=== PATIENT | female | born 1950 | race Caucasian/White ===

== ENCOUNTER → 2021-02-11 | Outpatient (CLI) | payer BC ==
[~2021-02-11] MED LIST: ASPI-630 PO; ATOR20TA58 PO; CALC-31 PO; IBUP200T58 PO; LISI1TAB20 PO; LISI20TA18 PO; OMEG-152 PO; PANT20TA2 PO
[2021-02-11 09:10] LABS: ALBUMIN 3.8 g/dL (3.4-5.0); CALCIUM 9.2 mg/dL (8.5-10.1); CREATININE 0.8 mg/dL (0.6-1.0); GFR 71.3; POTASSIUM 3.7 mmol/L (3.5-5.1)
[2021-02-11 09:34] LABS: BASO % 1 % (0-3); EOS # 0.1 x10^3/uL (0.0-0.7); EOS % 1 % (0-3); HEMATOCRIT 39.2 % (36.0-47.0); HEMOGLOBIN 13.2 g/dL (12.0-15.5); LYMPH # 1.7 x10^3/uL (1.0-4.8); LYMPH % 36 % (24-48); MEAN CORPUSCULAR HEMOGLOBIN 31 pg (25-35); MEAN CORPUSCULAR HGB CONC 34 g/dL (31-37); MEAN CORPUSCULAR VOLUME 92 fL (79-100); MONO # 0.4 x10^3/uL (0.0-1.1); MONO % 8 % (0-9); NEUT # 2.6 x10^3/uL (1.8-7.7); NEUT % 54 % (31-73); PLATELET COUNT 245 x10^3/uL (140-400); RED BLOOD COUNT 4.27 x10^6/uL (3.50-5.40); RED CELL DISTRIBUTION WIDTH 12.7 % (11.5-14.5); WHITE BLOOD COUNT 4.8 x10^3/uL (4.0-11.0)
[2021-02-11 09:48] LABS: PROTHROMBIN TIME PATIENT 12.2 SEC (11.7-14.0)
--- NOTE | 2021-02-11 16:57 | RAD ---
EXAM: PA and Lateral Views of the Chest DATE: 02/11/2021 11:46 AM INDICATION: Reason: PRE SURG EVAL / Spl. Instructions: JOINT CLASS 02/11 / History: COMPARISON: No Prior FINDINGS: The heart is not enlarged. Mediastinal and hilar contours are normal. No focal parenchymal airspace opacity. No pleural effusion or pneumothorax. Old/healed clavicle fractures bilaterally. IMPRESSION: 1. No radiographic evidence for acute cardiopulmonary process. Electronically signed by: Momo Hill MD (02/11/2021 4:54 PM) [id number]
[2021-02-12 00:10] LABS: HEMOGLOBIN A1C 6.3 % (4.8-5.6)
== END ==
LOC: SURGPAT 11:49
PROVIDERS: ATTEND Orthopaedic Surgery
DX: Z01.818 Encounter for other preprocedural examination (principal); M16.11 Unilateral primary osteoarthritis, right hip
CPT/HCPCS: 36415; 71046; 80048; 82040; 82306; 83036; 85025; 85610; 85651; 85730; 87641

== ENCOUNTER 2021-02-26 08:31 | Observation (INO) | payer BC, MEDICARE ==
[2021-02-13 16:49] VITALS: BP 123/75
[~2021-02-26] VITALS: Ht 165.1 cm; Wt 83.1 kg
[2021-02-26] VITALS (7 sets, daily range): BP systolic 91–128; BP diastolic 57–80
[~2021-02-26 08:31] MED LIST changes: +ACETAMINOPHEN 500 MG TABLET PO PRN; +CLINDAMYCIN 900MG PREMIX 50 ML IV PRN; +GABAPENTIN 300 MG CAPSULE. PO PRN; +HYDROmorphone 2 MG/ML VIAL IVP PRN; +IV RINGERS,LACTATED 1000ML 1,000 ML IV SCH; +MELOXICAM 7.5 MG TABLET PO PRN; +MORPHINE SULFATE 2 MG/ML INJ. IVP PRN; +MORPHINE SULFATE 5 MG, KETOROLAC 30MG VIAL 30 MG, ROPIVacaine 0.5% PF 60 ML, EPINEPHrin... INT ART ONE; +PROCHLORPERAZINE 10 MG/2 ML VIAL. IVP PRN; +TRANEXAMIC ACID 1,000 MG in IV NS 50ML -- 1ST BAG INJ ONE; +TRANEXAMIC ACID 1,000 MG in IV NS 50ML -- 2ND BAG INJ ONE; +fentaNYL PF VIAL 100 MCG/2 ML VIAL IVP PRN
[2021-02-26] MEDS ORDERED: WARF-31 PO (08:58)
[2021-02-26] MEDS ORDERED: MELO15TA23 PO (08:58)
[2021-02-26 09:19] LABS: PROTHROMBIN TIME PATIENT 12.2 SEC (11.7-14.0)
--- NOTE | 2021-02-26 10:10 | HP ---
ADMIT DATE: 02/26/2021 CHIEF COMPLAINT: Right hip pain. HISTORY OF PRESENT ILLNESS: The patient has a several year history of right hip pain, sharp with activity, aching afterward, increasing in severity and severely affecting her activities of daily living. She was seen elsewhere and told that she really needed a hip arthroplasty and that they did not expect good results with an injection. After a thorough discussion of the alternatives, she does wish to proceed with surgical evaluation and treatment. Notes no recent medical issues. PAST MEDICAL HISTORY: Significant for hyperlipidemia, hypertension. PAST SURGICAL HISTORY: For appendectomy, tonsillectomy, tubal ligation, breast implants. FAMILY HISTORY: Mother of lung cancer. Also, lung cancer in her father. Several brothers and daughters are alive and healthy. SOCIAL HISTORY: Denies smoking, alcohol or drug use. She is single and a retired registered nurse. MEDICATIONS: List is reviewed. ALLERGIES: SHE LISTS AN ANAPHYLACTIC ALLERGY TO PENICILLIN. PHYSICAL EXAMINATION: VITAL SIGNS: Per admission sheet. HEENT: Atraumatic, normocephalic. HEART: Regular rate and rhythm. LUNGS: Clear to auscultation bilaterally. ABDOMEN: Benign. EXTREMITIES: Examination of her right hip reveals severely limited range of motion and severe pain on the already limited extremes of range of motion compared to the left. Left hip has mild restriction in range of motion, much less severe symptoms. Negative straight leg raise laterally. Normal alignment, stability, bilateral knees and ankles. DIAGNOSTIC DATA: X-rays show [id number] osteoarthritis in the right hip, moderate degenerative change in the left hip. TREATMENT PLAN: I had previously discussed with her risks, benefits, postoperative course of total hip arthroplasty, nonoperative measures including using a cane in the opposite side, activity modification and injection. She indicates that she is very limited and wants to proceed at this point with surgical treatment and I talked about the possibility of infection, instability, leg length inequality premature wear, loosening, nerve or blood vessel damage, medical or other anesthetic complications among others. All her questions were answered and she wishes to proceed with surgical evaluation and treatment, which will include [facility] observation following today. JENNIFER/BEBETO DR: Lara TID: [id number]
[2021-02-26] MEDS ORDERED: DEXAMETHASONE SOD PHOS 4 MG/ML VIAL ONE (10:16)
[2021-02-26] MEDS ORDERED: LIDOCAINE 1% PF 5 ML VIAL. ONE (10:16)
[2021-02-26] MEDS ORDERED: PROPOFOL 10 MG/ML (20ML) VIAL. IV ONE (10:16)
[2021-02-26] MEDS ORDERED: ONDANSETRON PF 4 MG/2 ML VIAL. ONE (10:16)
[2021-02-26] MEDS ORDERED: fentaNYL PF VIAL 100 MCG/2 ML VIAL ONE (10:17)
[2021-02-26] MEDS ORDERED: ePHEDrine PF IN SALINE 50 MG/10 ML SYRINGE. IV ONE (10:51)
[2021-02-26] MEDS ORDERED: VANCOMYCIN 1 GM VIAL. ONE (10:53)
[2021-02-26] MEDS ORDERED: HYDROmorphone 2 MG/ML VIAL ONE (11:32)
[2021-02-26] MEDS ORDERED: TRANEXAMIC ACID in NS IVPB 50 ML ONE (12:03)
[2021-02-26] MEDS ORDERED: PHENYLEPHRINE in 0.9% NACL PF 1 MG/10 ML SYRINGE. IV ONE (12:18)
[2021-02-26] MEDS ORDERED: SEVOFLURANE > 120 MINUTES. IH ONE (12:56)
[2021-02-26] MEDS ORDERED: DEXTROSE 50% 25 GM / 50ML DISP.SYRIN. IV PRN (13:15)
[2021-02-26] MEDS ORDERED: CALCIUM CARBONATE 500 MG TAB.CHEW PO PRN (13:15)
[2021-02-26] MEDS ORDERED: MORPHINE SULFATE 2 MG/ML INJ. IVP PRN (13:15)
[2021-02-26] MEDS ORDERED: diphenhydrAMINE 50 MG/ML VIAL IVP PRN (13:15)
[2021-02-26] MEDS ORDERED: PROCHLORPERAZINE 5 MG TABLET. PO PRN (13:15)
[2021-02-26] MEDS ORDERED: ZOLPIDEM 5 MG TABLET. PO PRN (13:15)
[2021-02-26] MEDS ORDERED: fentaNYL PF VIAL 100 MCG/2 ML VIAL IVP PRN (13:15)
[2021-02-26] MEDS ORDERED: 0.9 % SODIUM CHLORIDE 10 ML DISP.SYRIN. IV PRN (13:15)
[2021-02-26] MEDS ORDERED: INSULIN LISPRO 100 UNIT/ML 3ML VIAL for OP,RR ONLY. SQ PRN (13:45)
--- NOTE | 2021-02-26 14:56 | NUR ---
received from recovery. she is drowsy but answers appropriately. she has good motion, sensation and pulses in lower extremities. she is rating her pain a "3". she lives alone. no special diet; no added sugar. no medications for diabetes.
--- NOTE | 2021-02-26 15:54 | PDOC4 ---
Operative Note Operative Note Date of surgery: 02/26/2021 Preoperative diagnosis: Degenerative joint disease right hip Postoperative diagnosis: Same Operative procedure: Right total hip arthroplasty with anterior approach Surgeon Kamari Harness And Bag Inspector: Luis E david Anesthesia: General Estimated blood loss: 200 cc Complications: None Drains: None Operative indications: Please see my orthopedic clinic note and dictated history and physical for detailed operative indications and note that we covered risks benefits postoperative course of the procedure. We specifically discussed the p ossibility of infection leg length inequality, nerve or blood vessel damage premature wear or loosening medical or other anesthetic complications among others. All her questions were answered and she wishes to proceed with surgical evaluation and treatment having given informed consent Operative text: Patient was identified procedure verified patient placed in the supine position on the [place] fracture table after adequate amounts of general anesthesia were administered. All bony prominences were well-padded and right hip was prepped and draped in the standard sterile fashion. After timeout was performed patient procedure identified and verified an incision was made just distal to the anterior superior iliac spine running along the tensor fascia pablo for a distance of about 4 inches. Fascia was incised tensor fascia pablo was taken laterally and circumflex vessels were located and coagulated and the anterior capsule was exposed with the rectus femoris gently retracted medially along with the underlying fascia that was dissected free. Capsule was split in a T-shaped incision and superior aspect of the capsule was excised and further superior release was carried out with the hip in external rotation. Hip was returned to 40 degrees external rotation and a napkin ring cut was made with an Avenir Luis broach for reference napkin ring was removed and femoral head was removed and sized. Reaming was carried out to a size 51 with a size 52 Biomet G7 acetabular shell was placed in proper version under fluoroscopic guidance and excellent scratch fit was noted. A 36 mm vitamin E liner was impacted into place. Femur was brought into maximum external rotation extension and adduction and release was carried out at the 11 o'clock position to free up the femur and retractors were placed medially and above the greater trochanter for maximum femoral exposure box osteotome was used along with the rattail rasp and successive size broaching up to a size 1 which provided excellent stability and fit within the canal. Calcar reaming was carried out and trial fitting with a +0 36 mm head to reproduce leg length and offset appropriately under fluoroscopi c guidance. Trial components were removed and a size 1 standard offset collared Avenir stem was impacted into place with a +0 ceramic 36 mm head. Excellent stability and range of motion were noted and leg length and offset were reproduced closely according to preoperative measurements and measurements from the contralateral side. Thorough irrigation carried out with normal saline solution and pulse lavage. Intra-articular mixture was injected subperiosteally throughout the joint capsule and subcutaneous areas and 1 g vancomycin sprinkled throughout the joint capsule area. Fascia was closed with #1 PDS strata fix suture in a running fashion subcutaneous closure with buried Vicryl skin closure with subcuticular Monocryl and a blaire dressing was applied. Patient was returned to recovery room in stable condition having tolerated the procedure well. Luis E david was present for the procedure and assisted in the patient positioning prepping draping retraction closure and dressings GOOD MELGAR MD Feb 26, 2021 15:54
[2021-02-26] MEDS ORDERED: WARFARIN 7.5 MG TABLET. PO ONE (16:00)
[2021-02-26] MEDS: ONDANSETRON PF 4 MG/2 ML VIAL. IVP SCH (18:00)
[2021-02-26] MEDS: CLINDAMYCIN 900MG PREMIX 50 ML IV SCH (18:13)
[2021-02-26] MEDS: IV NORMAL SALINE 1000ML BAG 1,000 ML IV SCH (18:13)
[2021-02-26] MEDS: FERROUS SULFATE 325 MG TABLET. PO SCH (18:14)
[2021-02-26] MEDS: ONDANSETRON ODT 4 MG TAB.RAPDIS. PO SCH (18:14)
[2021-02-27] MEDS: IV NORMAL SALINE 1000ML BAG 1,000 ML IV SCH (00:42)
[2021-02-27] MEDS: CLINDAMYCIN 900MG PREMIX 50 ML IV SCH ×2 (00:42→06:26)
[2021-02-27 02:26] VITALS: BP 114/52
[2021-02-27] MEDS: ONDANSETRON PF 4 MG/2 ML VIAL. IVP SCH ×3 (06:00→12:00)
[2021-02-27] MEDS ORDERED: MAGNESIUM HYDROXIDE 2,400 MG/30 ML ORAL.SUSP. PO PRN (06:00)
[2021-02-27] MEDS: ONDANSETRON ODT 4 MG TAB.RAPDIS. PO SCH ×3 (06:00→12:00)
[2021-02-27] MEDS: GABAPENTIN 100 MG CAPSULE. PO SCH ×2 (06:00→14:00)
[2021-02-27 06:22] VITALS: BP 98/56
[2021-02-27] MEDS: traMADol 50 MG TABLET PO SCH ×3 (06:27→17:51)
[2021-02-27] MEDS: LISINOPRIL 20 MG TABLET PO SCH (09:00)
[2021-02-27] MEDS: hydroCHLOROthiazide 25 MG TABLET PO SCH (09:00)
[2021-02-27] MEDS ORDERED: PANTOPRAZOLE SODIUM 20 MG PO SCH (09:00)
[2021-02-27] MEDS ORDERED: LISINOPRIL 20 MG TABLET PO SCH (09:00)
[2021-02-27 09:12] LABS: PROTHROMBIN TIME PATIENT 13.3 SEC (11.7-14.0)
[2021-02-27] MEDS: OMEGA-3 FATTY ACIDS/FISH OIL 1,000 MG CAPSULE. PO SCH (09:44)
[2021-02-27] MEDS: ASPIRIN CHEWABLE 81 MG TABLET. PO SCH (09:44)
[2021-02-27] MEDS: MULTIVITAMIN with MINERAL TABLET. PO SCH (09:45)
[2021-02-27] MEDS: CALCIUM CARB/VIT D3 500/200 TABLET. PO SCH (09:45)
[2021-02-27] MEDS: PANTOPRAZOLE 40 MG TABLET.DR. PO SCH (09:45)
[2021-02-27] MEDS: ACETAMINOPHEN 500 MG TABLET PO SCH ×3 (09:46→21:10)
[2021-02-27] MEDS: MELOXICAM 7.5 MG TABLET PO SCH (09:46)
[2021-02-27] MEDS: FERROUS SULFATE 325 MG TABLET. PO SCH ×2 (09:47→17:51)
[2021-02-27] MEDS: oxyCODONE IR 5 MG TABLET PO PRN (09:48)
--- NOTE | 2021-02-27 10:23 | NUR ---
Pharmacy Warfarin Dosing Note S:Pharmacy consulted to assist with anticoagulation therapy started 02/26/21 with target INR: 1.6 - 2.5 O:ELLIOT FABIAN is a 70 year old F with [facility] LABS: Last INR: 1 Last HGB: - Last HCT: - Last PLT: - Last dose of 7.5 mg given on 02/26/21 at 1814 Previous Regimen: Vitamin K given: Drug Interaction Changes: Ongoing Drug Interactions: A:INR of 1 is below desired range. Target range for this patient is: 1.6 - 2.5 P: Warfarin dose: 5 mg Today at 1600 Bridge Therapy: None Next INR due 02/28/21. Pharmacy anticoagulation service will continue to follow. CHACHA BROWNLEE RPH, 02/27/21 1022
[2021-02-27] MEDS ORDERED: ONDANSETRON ODT 4 MG TAB.RAPDIS. PO PRN (12:00)
[2021-02-27] MEDS ORDERED: ONDANSETRON PF 4 MG/2 ML VIAL. IVP PRN (12:00)
--- NOTE | 2021-02-27 15:07 | PATHOLOGY ---
[facility] Accession Number: [id number] . 01 Material submitted: . femur - FEMORAL HEAD- RT. Modifiers: right, head . 01 Clinical history: . DEGENERATIVE JOINT DISEASE OA OF RIGHT HIP R TOTAL HIP ANTERIOR . 02 Diagnosis: Segments of bone and articular cartilage, anterior right total hip arthroplasty: - Advanced degenerative arthritis. (JPM:damaris; 02/27/2021) QMS 02/27/2021 1349 Local . 02 Electronically signed: . Bob Painter MD, Pathologist NPI- [id number] . 01 Gross description: . The specimen is received in formalin, labeled "Ramirez, Roxanna and femoral head" and per the requisition "femoral head - RT". It consists of 2 alexander irregular, firm bony tissue fragments measuring 5.0 and 4.5 cm. The smaller fragment is grossly consistent with a femoral head, displaying a alexander-white smooth articular surface with possible eburnation-like changes and a smooth resection surface with a 1.1 cm in diameter canal through the bone marrow. A automotive sales representative section is submitted in A1 following decalcification. (MRF; 02/26/2021) MFE/MFE 02/26/2021 1715 Local . 02 Pathologist provided ICD-10: M16.11 . 02 CPT . 592743, 470163 Specimen Comment: A courtesy copy of this report has been sent to [phone] Specimen Comment: [id number] Specimen Comment: Report sent to / DR CONCEPCION Specimen Comment: A duplicate report has been generated due to demographic updates. Performed at: [address], [place], [place] [id number] MD Prashant Balderrama MD Phone: [phone] Performed at: [id number] [place], [place] [id number] MD Bob Painter MD Phone: [phone]
[2021-02-27 15:15] VITALS: BP 97/52
[2021-02-27] MEDS ORDERED: BISACODYL 10 MG SUPP.RECT. PR PRN (16:00)
[2021-02-27] MEDS ORDERED: WARFARIN 5 MG TABLET. PO ONE (16:00)
[2021-02-27 18:31] VITALS: BP 95/49
--- NOTE | 2021-02-27 20:00 | PDOC ---
PROGRESS NOTES Date of Service DATE: 02/27/21 TIME: 19:59 Subjective Subjective Problems overnight: Hip is a bit sore but getting around reasonably well, pain medicine generally effective Objective Vital Signs Vital Signs Date Time Temp Pulse Resp B/P (MAP) Pulse Ox O2 Delivery O2 Flow Rate FiO2 02/27/21 18:31 98.0 80 20 95/49 (64) 96 Room Air 98.0 02/26/21 20:00 3.0 Physical Exam Leg lengths equal blaire dressing intact distal neurovascular status intact Labs Laboratory Tests Test 02/26/21 08:55 02/26/21 13:18 02/26/21 17:14 02/27/21 06:48 Prothrombin Time 12.2 SEC (11.7-14.0) Prothromb Time International Ratio 0.9 (0.8-1.1) Activated Partial Thromboplast Time 24 SEC (24-38) Glucose (Fingerstick) 208 mg/dL (70-99) 134 mg/dL (70-99) 95 mg/dL (70-99) Test 02/27/21 08:30 02/27/21 17:05 Prothrombin Time 13.3 SEC (11.7-14.0) Prothromb Time International Ratio 1.0 (0.8-1.1) Glucose (Fingerstick) 156 mg/dL (70-99) Laboratory Tests Test 02/27/21 06:48 02/27/21 08:30 02/27/21 17:05 Glucose (Fingerstick) 95 mg/dL (70-99) 156 mg/dL (70-99) Prothrombin Time 13.3 SEC (11.7-14.0) Prothromb Time International Ratio 1.0 (0.8-1.1) Imaging Intraoperative fluoroscopy shows excellent maintenance of leg lengths and component positioning Assessment Assessment POD#1 total hip arthroplasty Plan Plan of Care Continue mobilize with physical therapy, anticoagulation Justicifation of Admission Dx: Justifications for Admission: Justification of Admission Dx: N/A GOOD MELGAR MD Feb 27, 2021 20:00
[2021-02-27] MEDS ORDERED: ATORVASTATIN CALCIUM 20 MG TABLET PO SCH (21:00)
[2021-02-28] MEDS: traMADol 50 MG TABLET PO SCH ×3 (00:09→12:00)
[2021-02-28] MEDS: ACETAMINOPHEN 500 MG TABLET PO SCH ×3 (02:35→16:57)
[2021-02-28 05:04] LABS: PROTHROMBIN TIME PATIENT 18.8 SEC (11.7-14.0)
[2021-02-28 06:00] VITALS: BP 99/49
[2021-02-28] MEDS: PANTOPRAZOLE 40 MG TABLET.DR. PO SCH (06:07)
[2021-02-28] MEDS: ASPIRIN CHEWABLE 81 MG TABLET. PO SCH (08:17)
[2021-02-28] MEDS: FERROUS SULFATE 325 MG TABLET. PO SCH ×2 (08:17→17:00)
[2021-02-28] MEDS: MELOXICAM 7.5 MG TABLET PO SCH (08:17)
[2021-02-28] MEDS: CALCIUM CARB/VIT D3 500/200 TABLET. PO SCH (08:17)
[2021-02-28] MEDS: MULTIVITAMIN with MINERAL TABLET. PO SCH (08:17)
[2021-02-28] MEDS: OMEGA-3 FATTY ACIDS/FISH OIL 1,000 MG CAPSULE. PO SCH (08:24)
[2021-02-28] MEDS ORDERED: POLYETHYLENE GLYCOL 3350 17 GM PACKET. PO PRN (08:30)
[2021-02-28] MEDS: LISINOPRIL 20 MG TABLET PO SCH (09:00)
[2021-02-28] MEDS: hydroCHLOROthiazide 25 MG TABLET PO SCH (09:00)
[2021-02-28 09:05] LABS: HEMATOCRIT 26.6 % (36.0-47.0); HEMOGLOBIN 9.1 g/dL (12.0-15.5)
[2021-02-28 11:20] VITALS: BP 113/59
--- NOTE | 2021-02-28 11:22 | NUR ---
Roxanna is doing fair. she has increase in pain and occasionally takes an oxycodone. she has good pulses strength and sensation bilateral lower extremities. she remains hypotensive this am; blood pressure medications. held
[2021-02-28] MEDS: IV NORMAL SALINE 1000ML BAG 1,000 ML IV SCH (13:15)
[2021-02-28] MEDS ORDERED: WARFARIN 2 MG TABLET. PO ONE (16:00)
[2021-02-28] MEDS ORDERED: TRAM50TA PO (16:32)
[2021-02-28] MEDS ORDERED: OXYC5CAP PO (16:32)
--- NOTE | 2021-02-28 16:33 | SNU/HH DC ---
DISCHARGE WITH HOME HEALTH DISCHARGE INFORMATION: Discharge Date: Feb 28, 2021 Final Diagnosis: Status post total knee arthroplasty Condition on Discharge: Stable CODE STATUS: Code Status: Full HOME HEALTH: Face to Face: I certify this patient is under my care and that I, or a nurse practitioner or physician's administrative assistant office manager working with me, had a face to face encounter that meets the physician face to face encounter requirements with this patient on [02/28/21]. Medical Complications: S/P Joint Replacement Usp For: Assess/Skilled Observatio RN For Eval/Treatment: Yes Physical Therapy For: Evalulation/Treatment Pt Meets Homebound Status: Limited distance walking POST DISCHARGE ORDERS: Activity Instructions for Disc: Walk in house Weight Bearing Status after Di: No restrictions, Full weight bearing, As tolerated Bathing Instructions: Shower-keep dressing dry, No Tub Bath until see Dr. GUEVARA AFTER DISCHARGE: Regular Wound/Incision Care: Ice to area for comfort, Keep wound/cast CDI, Keep wound elevated, Do not change dressing Other wound/incision instructi: remove battery pack on 03/05 unscrew tubing and tape end downwards CHECKS AFTER DISCHARGE: Comment: PT/INR to be drawn every Thursday until 04/01 will FOLLOW-UP: Follow Up With: f/u Dr. Benites on 03/11 at 2:45 if need to resched call [phone] Warfarin Follow UP: [facility] to manage /monitor coumadin ??? call [phone] TREATMENT/EQUIPMENT ORDERS: Adaptive Equipment Issued: None CERTIFICATION STATEMENT: Certification Statement: Certification Statement: Based on the above finding, I certify that this patient is confined to the home and needs intermittent correction care, physical therapy and/or speech therapy, or continues to need occupational therapy.~ This patient is under my care, and I have initiated the establishment of the plan of care.~ This patient will be followed by myself or a community physician who will periodically review the plan of care. Home Meds Reported Medications Warfarin Sodium (WARFARIN SODIUM) 5 Mg Tablet, 5 MG PO ONCE for preop, #30 TAB 02/26/21 Meloxicam (MELOXICAM) 15 Mg Tablet, 1 TAB PO 1X for preop for 30 Days, TAB 0 Refills 02/26/21 Ibuprofen (ADVIL) 200 Mg Tablet, 200 MG PO PRN BID PRN for pain control, TAB 02/13/21 Aspirin (ASPIRIN) 81 Mg Tab.chew, 81 MG PO DAILY for blood thinner, TAB.CHEW 02/13/21 Lisinopril (LISINOPRIL) 20 Mg Tablet, 20 MG PO DAILY for FOR HYPERTENSION, #30 TAB 0 Refills 02/13/21 Atorvastatin Calcium (ATORVASTATIN CALCIUM) 20 Mg Tablet, 20 MG PO HS for FOR CHOLESTEROL, #30 TAB 0 Refills 02/13/21 [place]-3/Dha/Epa/Fish Oil (FISH OIL 1,000 MG SOFTGEL) 1 Each Capsule, 1 EACH PO DAILY for supplement, CAP 02/13/21 Calcium Carbonate/Vitamin D3 (CALCIUM 500 + D TABLET) 1 Each Tablet, 1 EACH PO DAILY for supplement, TAB 02/13/21 Pantoprazole Sodium (PROTONIX) 20 Mg Tablet.dr, 20 MG PO DAILY for control gerd, TAB 02/13/21 Lisinopril/Hydrochlorothiazide (LISINOPRIL-HCTZ 20-25 MG TAB) 1 Each Tablet, 1 TAB PO DAILY for bp control, #90 TAB 3 Refills 02/13/21 GOOD BENITES MD Feb 28, 2021 16:33
[2021-02-28] MEDS ORDERED: WARF3TAB50 PO (16:39)
[2021-02-28] MEDS: oxyCODONE IR 5 MG TABLET PO PRN (16:56)
[2021-02-28 17:05] VITALS: BP 108/61
--- NOTE | 2021-02-28 17:56 | NUR ---
reviewed written discharge instructions with patient and friend. saline lock removed. reviewed restrictions to activites of daily living; incisional care follow up with Dr. Benites. Home Health is coming Thursday. she was given the phone number to call if they do not show up. [facility] is to manage and monitor Coumadin . she is to get a lab draws on thursday and the pharmacist will call thursday afternoon regarding dosage. medicated prior to dismissal with pain medication
--- NOTE | 2021-02-28 18:48 | DS ---
DATE OF DISCHARGE: 02/28/2021 ORTHOPEDIC DISCHARGE SUMMARY DIAGNOSIS: Degenerative joint disease of right hip. PROCEDURE: Right total hip arthroplasty. DISPOSITION: Home with home health. MEDICATIONS: Oxycodone 5 mg p.o. q.4 hours p.r.n. severe pain, tramadol 50 mg p.o. q. 4 hours p.r.n. moderate pain. Stop ibuprofen. Continue other preoperative medications including warfarin as directed by anticoagulation clinic. Follow up Dr. Benites in 2 weeks postoperatively, weightbearing as tolerated. Limit extremes of range of motion of the hip. Call if any fever, chills, uncontrolled pain or other problems. BRIEF DESCRIPTION OF HOSPITAL COURSE: The patient underwent uncomplicated right total hip arthroplasty. Postoperatively, got around reasonably well. Pain was controlled. She remained medically stable throughout and was discharged home in stable condition with home health followup. CHAPARRITA DR: Lara TID: [id number]
== END 2021-02-28 17:30 | disposition home health service (06) ==
LOC: SURG 08:31 → 4 SOUTHEST 13:15
PROVIDERS: ADMIT Orthopaedic Surgery; ATTEND Orthopaedic Surgery
DX: M16.11 Unilateral primary osteoarthritis, right hip (principal); E78.5 Hyperlipidemia, unspecified; I10 Essential (primary) hypertension; Z80.1 Family history of malignant neoplasm of trachea, bronchus and lung; Z96.641 Presence of right artificial hip joint; Z98.82 Breast implant status; Z90.49 Acquired absence of other specified parts of digestive tract; Z98.890 Other specified postprocedural states
CPT/HCPCS: 27130; 36415; 82962; 85014; 85018; 85610; 85730; 86850; 86900; 86901; 88304; 88311; 96365; 96366; 96376; 97116; 97150; 97162; 97165; 97530; 97535; A4213; A4930; A6223; A6258; A6402; A6550; C1755; C1776; G0378; G0379; J0171; J1100; J1170; J1815; J1885; J2270; J2370; J2405; J2704; J2795; J3010; J3370; J3490; J7030; 76000